=== PATIENT | male | born 1960 | race Caucasian/White ===

== ENCOUNTER 2019-10-11 08:16 | Inpatient (IN) | payer OTHER ==
[2019-10-03 12:21] LABS: Absolute Lymphocytes (CBC) 2.5 K/uL (0.7-4.9); Basophils % 0.4 % (0-1.3); Hematocrit 49.6 % (39.6-49.0); Lymphocytes % 28.1 % (15.3-44.8); MPV 9.4 fL (7.6-11.3); RBC Red Blood Cell Count 5.62 M/uL (4.33-5.43)
[2019-10-03 12:24] LABS: Protime INR 0.92
--- NOTE | 2019-10-03 12:26 | RAD REPORT ---
EXAM DESCRIPTION: RAD - Chest Pa And Lat (2 Views) - 10/03/2019 12:20 pm CLINICAL HISTORY: preop Chest pain. COMPARISON: No comparisons FINDINGS: The lungs are clear. The heart is normal in size. No displaced fractures. IMPRESSION: No acute or concerning finding suspected.
[2019-10-03 12:32] LABS: BUN Blood Urea Nitrogen 12 mg/dL (7-18); Bicarbonate 25 mmol/L (21-32); Glucose Level 96 mg/dL (74-106); Sodium Level 140 mmol/L (136-145)
--- OUTSIDE RECORDS SUMMARY | 2019-10-11 08:19 | XMS REPORT ---
:1960 Author Organization [employer] Care Team Providers Name Role Phone Manny De Leon Provider Role Unavailable Allergies No Known Allergies Problems Problem Type Condition Code Onset Dates Condition Status Problem Morbidly obese E66.01 Active Problem Other chronic pain G89.29 Active Problem Sciatica, right side M54.31 Active Problem Left sided sciatica M54.32 Active Problem Pain in left knee M25.562 Active Problem Primary osteoarthritis of left knee M17.12 Active Medications No Known Medications Results No Known Results Summary Purpose [employer] Submission
--- OUTSIDE RECORDS SUMMARY | 2019-10-11 08:19 | XMS REPORT ---
:1960 Author Organization [employer] Care Team Providers Name Role Phone Manny De Leon Provider Role Unavailable Allergies, Adverse Reactions, Alerts Substance Reaction Event Type N.K.D.A. Info Not Available Non Drug Allergy Problems Problem Type Condition Code Onset Dates Condition Status Assessment Pain in left knee M25.562 Active Assessment Primary osteoarthritis of left knee M17.12 Active Problem Morbidly obese E66.01 Active Problem Other chronic pain G89.29 Active Problem Sciatica, right side M54.31 Active Problem Left sided sciatica M54.32 Active Problem Pain in left knee M25.562 Active Problem Primary osteoarthritis of left knee M17.12 Active Medications Medication Code Code Instructions Start End Status Dosage System Date Date Jardiance [facility] 97449056353 10 MG Oral Active TAKE 1 TABLET BY MOUTH EVERY DAY IN THE MORNING Losartan [facility] [address]-67 Active not Potassium defined Clopidogrel [facility] 59484706833 75 MG Orally Active 1 tablet Bisulfate Once a day Tramadol HCl ND 0 Active not defined Isosorbide [facility] 78011152514 30 MG Orally Active 1 tablet Mononitrate ER Once a day in the morning Amlodipine ND 0 Active not Besylate defined Atorvastatin [facility] 81062797051 40 MG Orally Active 1 tablet Calcium Once a day Entresto [facility] 64300610393 49-51 MG Orally Active 1 tablet Twice a day Methocarbamol [facility] [address]-57 Active not defined Metformin HCl [facility] [address]-27 Active not defined Results No Known Results Summary Purpose [employer]Works Submission
--- OUTSIDE RECORDS SUMMARY | 2019-10-11 08:19 | XMS REPORT ---
:1960 Author Organization [employer] Care Team Providers Name Role Phone Manny De Leon Provider Role Unavailable Allergies No Known Allergies Problems Problem Type Condition Code Onset Dates Condition Status Assessment Primary osteoarthritis of left knee M17.12 [...]
[2019-10-11] MEDS ORDERED: NA CHLORIDE 0.9% 0 ML ONE (08:38)
[2019-10-11] MEDS ORDERED: NA CHLORIDE 0.9% 1,000 ML ONE ×2 (08:43→10:48)
[2019-10-11] MEDS ORDERED: FENTANYL CITR 100 MCG/2 ML ONE (09:03)
[2019-10-11] MEDS ORDERED: propofoL 200 MG/20 ML VIAL IV ONE (09:03)
[2019-10-11] MEDS ORDERED: LIDOCAINE 2% MPF 5 ML VIAL ONE (09:03)
[2019-10-11] MEDS ORDERED: MIDAZOLAM HCL 2 MG/2 ML INJ ONE ×2 (09:04→09:05)
[2019-10-11] MEDS ORDERED: CEFAZOLIN/SWI 2gm 2 GM/20 ML SYR ONE (09:29)
[2019-10-11] MEDS ORDERED: TRANEXAMIC ACID 1,000 MG in NA CHLORIDE 0.9% 50 ML IV SCH (09:30)
[2019-10-11] MEDS ORDERED: LIDOCAINE 1% MPF 2 ML AMPULE ONE (09:57)
[2019-10-11] MEDS ORDERED: EPINEPHRINE/PF 1 MG/ML AMP ONE (09:59)
[2019-10-11] MEDS ORDERED: BUPIVACAINE 0.25% PF 30 ML VIAL ONE (10:31)
[2019-10-11] MEDS ORDERED: dexAMETHasone 4 MG/ML VIAL ONE (10:31)
[2019-10-11] MEDS ORDERED: KETAMINE HCL 500 MG/5 ML VIAL ONE (11:04)
[2019-10-11] MEDS ORDERED: MEPERIDINE HCL 25 MG/ML SYR ONE (11:04)
[2019-10-11] MEDS ORDERED: GLYCOPYRROLATE 0.2 MG/ML SYR ONE ×2 (11:10→11:11)
[2019-10-11] MEDS: BUPIVACA 0.5%/EPI 0.0005%/PF 30 ML VIAL ONE ×2 (11:19→12:47)
[2019-10-11] MEDS ORDERED: FENTANYL CITR 250 MCG/5 ML ONE (11:36)
[2019-10-11] MEDS ORDERED: KETOROLAC 30 MG/ML INJ ONE (13:13)
--- NOTE | 2019-10-11 14:04 | P.BOP ---
Preoperative diagnosis: left knee osteoarthritis Postoperative diagnosis: same Primary procedure: left total knee arthroplasty Supervisor Cell Maintenance: NONE,NONE Estimated blood loss: 20 cc Specimen: left knee bone remnants Findings: see dictation Anesthesia: General Drain(s): Urinary catheter (removed at the end of the case) Implants: Biomet Willis Persona Size 12 CR femur, H tibia, 10 mm poly, 41 patella Fluids & blood products: per anesthesia record; TT: 103 mins @ 300 mmHg Transferred to: Recovery Room Condition: Good
[2019-10-11] MEDS ORDERED: DOCUSATE NA 100 MG CAP PO PRN (14:10)
[2019-10-11] MEDS ORDERED: ONDANSETRON 4 MG/2 ML VIAL IV PRN (14:10)
[2019-10-11] MEDS ORDERED: TRAMADOL HCL 50 MG TAB PO PRN (14:13)
--- NOTE | 2019-10-11 14:35 | P.CNS ---
Date of Consult: 10/11/19 Reason for Consult: Medical management Requesting Physician: Manny De Leon Primary Care Provider: Dr. Santo([place], [place]); Cardiology-Dr. Sánchez([place], [place]) Chief Complaint: Left total knee replacement History of Present Illness: 59-year-old male presented as an admission by orthopedics for left total knee replacement. Patient tolerated procedure well. I was consulted to further address his medical problems. Patient with history of diabetes mellitus type 2 non-insulin dependent, hypertension, hyperlipidemia, CAD, systolic congestive heart failure, chronic pain, and obesity. Patient was seen by Cardiology prior to surgery. He had a heart catheterization showing some stenosis. No stent was required. Patient was placed on Plavix. Patient denies any complaints at this time. Orthopedics plans to continue with DVT prophylaxis-Lovenox, Plavix, in his other medications. Therapy will be initiated. Allergies No Known Allergies Allergy (Verified 10/03/19 11:28) Home medications list reviewed: Yes Home Medications: Atorvastatin Calcium [Lipitor] 40 mg PO BEDTIME 10/03/19 Clopidogrel Bisulfate [Plavix] 75 mg PO DAILY 10/03/19 Empagliflozin [Jardiance] 10 mg PO DAILY 10/03/19 Isosorbide Dinitrate 30 mg PO [id number] 10/03/19 Metformin HCl 1,000 mg PO BID 10/03/19 Sacubitril/Valsartan [Entresto 49 mg-51 mg Tablet] 1 tab PO BID 10/03/19 - Past Medical/Surgical History Diabetic: Yes -: Diabetes mellitus type 2 sef-syjyndi-hvtrvmvdb -: Hypertension -: Osteoarthritis left knee -: CAD -: Systolic congestive heart failure -: Hyperlipidemia -: lower back surg 2003 Psychosocial/ Personal History: Patient lives at home. - Family History Brother Medical History: Heart disease Notes: mother and sisters-diabetes. mother kidney disease. father lung cancer - Social History Smoking Status: Light Tobacco smoker (1-9 cigarettes/day) Smoking therapy provided: Yes Alcohol use: No CD- Drugs: No Caffeine use: Yes Place of Residence: Home Review of Systems General: Unremarkable Eyes: Unremarkable ENT: Unremarkable Respiratory: Unremarkable Cardiovascular: Unremarkable Gastrointestinal: Unremarkable Genitourinary: Unremarkable Musculoskeletal: As per HPI Neurological: Unremarkable Lymphatics: Unremarkable Physical Examination Temp Pulse Resp BP Pulse Ox 98 F 67 12 123/73 10/11/19 14:13 10/11/19 14:13 10/11/19 14:13 10/11/19 14:13 General: Alert, In no apparent distress, Cooperative HEENT: Atraumatic, Normocephalic, Mucous membr. moist/pink Neck: Supple Respiratory: Clear to auscultation bilaterally, Normal air movement Cardiovascular: Normal pulses, Regular rate/rhythm Gastrointestinal: Normal bowel sounds, Soft and benign, Non-distended, No tenderness, No masses, No rebound, No guarding Musculoskeletal: Other (Left knee bandaged) Neurological: Normal speech, Normal strength at 5/5 x4 extr, Normal tone, Normal affect Conclusions/Impression: Impression: Left knee arthritis status post left total knee replacement Hypertension Diabetes mellitus type 2 kym-mqpowph-jomxkjopw Chronic systolic congestive heart failure Hyperlipidemia CAD Tobacco abuse Obesity Plan: Left knee arthritis status post left total knee replacement: Case discussed with orthopedics. Physical therapy to be initiated. Will continue with medication for pain. Patient will continue with Lovenox for DVT prophylaxis. Will resume home medications. Will follow along. Anticipate discharge to home in the next 48-72 hr. Hypertension: Will need to restart home medication. Will monitor and adjust appropriately. Diabetes mellitus type 2 zxh-fqcnibt-fslegkizh: Will provide Accu-Cheks. Will monitor closely. Metformin restarted. Chronic systolic congestive heart failure: Patient takes Entresto. This will need to be restarted. Hyperlipidemia: Will continue with home medication. CAD: Will continue with Plavix. Tobacco abuse: Will provide nicotine patch. Obesity: Will address lifestyle modification education. Time Spent Managing Pts care (In Minutes): 55
[2019-10-11 14:50] LABS: Hematocrit 44.4 % (39.6-49.0)
--- NOTE | 2019-10-11 15:33 | RAD REPORT ---
EXAM DESCRIPTION: RAD - Knee Left 2 View - 10/11/2019 2:51 pm CLINICAL HISTORY: Left knee surgery FINDINGS: Postoperative changes left knee arthroplasty Prosthesis in good position No fracture or dislocation.
[2019-10-11 15:57] VITALS: BMI 34.7
[2019-10-11] MEDS ORDERED: INFLUENZA VACCINE (for 3y+) 0.5 ML DOSE IMVAC ONE (17:00)
[2019-10-11] MEDS ORDERED: PNEUMOCOCCAL VACCINE 0.5 ML IMVAC ONE (17:00)
[2019-10-11] MEDS: METFORMIN HCL 500 MG TAB PO SCH (17:30)
[2019-10-11] MEDS: CEFAZOLIN/SWI 2gm 2 GM/20 ML SYR IVP SCH (17:30)
[2019-10-11] MEDS ORDERED: HOME MED 1 EA UNK (Metformin Hcl [Metformin Hcl] 1,000 MG) PO SCH (21:00)
[2019-10-11] MEDS: MORPHINE 2 MG/ML SYR IV PRN (21:45)
[2019-10-11] MEDS: SACUBITRIL/VALSARTAN 49/51 MG TAB PO SCH (21:46)
[2019-10-11] MEDS: ATORVASTATIN 40 MG TAB PO SCH (21:46)
--- NOTE | 2019-10-11 22:54 | P.OP ---
Preoperative diagnosis: left knee osteoarthritis Postoperative diagnosis: same Primary procedure: left total knee arthroplasty Anesthesia: general LMA Estimated blood loss: 20 cc Specimen: left knee bone remnants Findings: see dictation Operative Technique: Indication For Procedure: Kme is a 59-year-old male who presented to my clinic with signs and symptoms consistent with severe left knee osteoarthritis. The patient failed conservative treatment measures including physical therapy, corticosteroid and viscosupplementation injection. I discussed with the patient at length risks and benefits associated with operative and nonoperative treatment. He expressed understanding and elected to proceed with the operative treatment. Description Of Procedure: After informed consent was obtained, the patient was identified in the preoperative holding area. The left lower extremity was marked. The patient was then taken back to the PACU where he underwent an adductor canal block performed by Anesthesia. He was then taken back to the operating room, transferred to the operating table in the supine fashion and placed under general LMA anesthesia. Left lower extremity was then prepped and draped in the usual sterile fashion. A time-out was initiated. The correct patient and procedure were confirmed and identified. The patient did receive his preoperative prophylactic antibiotics. The left lower extremity was exsanguinated using an Esmarch and the tourniquet was inflated to 300 mmHg. Approximately 15 cm longitudinal incision was made over the anterior aspect of the knee centered over the patella. Dissection was then taken down to the extensor mechanism where a median parapatellar arthrotomy was performed. The patella was everted. There was significant wear of the undersurface of the patella and it was elected to resurface the patella. Osteophytes were then debrided using a rongeur on the superior and inferior medial and lateral aspects of the patella. Medial capsular tissue was then elevated off the proximal tibial for exposure. Infrapatellar fat pad was excised as well as medial and lateral menisci as well as the ACL. Preoperatively, the patient had an MRI for creation of the cutting block guide. The guide was then placed over the distal femur and pinned into position and first a distal femoral cutting guide was placed over the pins and the distal femoral cut was then placed. The 4 in 1 cutting guide was then placed over the distal aspect of the distal femur and anterior and posterior cuts were made as well as anterior and posterior chamfer cuts. A size 12 CR femur was then selected and was put into position. Next, the proximal tibial femoral guide was then placed, tamped into position over the proximal tibia and pins were placed. Alignment krystal was then placed and there was good overall alignment with posterior slope as well as varus/ valgus alignment. The proximal tibia cutting guide was then placed and the proximal tibia was cut until the 10 mm spacer fit well in both flexion and extension. There was no significant instability. The trial components were then placed using a size 12 femur and a size H tibia with an 10 mm poly. Given the large implants and increased BMI, it was elected to place a 30 mm stem on the tibial component. There was good overall range of motion and stability. The femur was drilled as well as the tibia was punched. The patellar thickness was then measured and a planar was used to cut the patella to the proper depth and a size 41 patella was selected and drilled. .After this was completed, the wound was then irrigated thoroughly with normal saline. The knee was then injected with 30 mL of 5% Marcaine with epinephrine in the posterior capsule, periosteum, and quad tendon and muscle as well as the anterior soft tissues of the tibia. The cement was prepared on the back table and placed on the tibia. Final tibial component was placed, which was a size H tibia. Excess cement was then removed using a [place] elevator followed by placement of the 12 CR femur. Excess cement was removed using a [place] elevator. Size 10 mm poly was then placed. The cement was also placed on the patella and the patellar component was placed. The knee was held in extension as the cement hardened. The knee was then ranged. There was good overall patellar tracking as well as stability in flexion and extension. The final size 10 CR poly was then placed and locked into position. The wound was then irrigated thoroughly with normal saline. Tourniquet was let down. Hemostasis was achieved using Bovie electrocautery. The extensor mechanism was then approximated using a #1 Vicryl in an interrupted and running fashion. The superficial fascia was approximated using a 0 Vicryl. The subcutaneous tissue was approximated using a 2-0 Vicryl. Skin was approximated using laura. Sterile dressings were applied. The patient was awakened and transferred to the PACU in stable condition. Postoperative Plan: Physical Therapy will be consulted to aid with mobilization. Dr. Patel was consulted to aid with medical management. The patient will stay at least 2 midnights given his multiple medical comorbidities. Complications: None Drain(s): Urinary catheter (removed at the end of the case) Implants: Biomet Willis Persona 12 CR femur, H tibia w/ stem, 10 mm poly, 41 patella Fluids & blood products: per anesthesia record; TT: 103 mins @ 300 mmHg Transferred to: Recovery Room Condition: Good
[2019-10-12] MEDS: HYDROCODONE/APAP 7.5/325 MG TAB PO PRN ×4 (00:44→20:52)
[2019-10-12] MEDS: CEFAZOLIN/SWI 2gm 2 GM/20 ML SYR IVP SCH ×2 (00:47→09:00)
[2019-10-12] MEDS: NICOTINE 21 MG/PAT TD SCH ×2 (03:04→08:54)
[2019-10-12] MEDS: MORPHINE 2 MG/ML SYR IV PRN ×4 (03:20→23:45)
[2019-10-12] MEDS: ISOSORBIDE DINIT 20 MG TAB PO SCH (05:18)
[2019-10-12] MEDS: ENOXAPARIN 30 MG/0.3 ML SQ SCH ×3 (05:19→20:53)
[2019-10-12] MEDS ORDERED: HOME MED 1 EA UNK (Isosorbide Dinitrate [Isosorbide Dinitrate] 30 MG) PO SCH (06:00)
[2019-10-12] MEDS ORDERED: GABAPENTIN 100 MG CAP PO PRN (08:04)
[2019-10-12] MEDS: METFORMIN HCL 500 MG TAB PO SCH ×2 (08:50→16:32)
[2019-10-12] MEDS: SACUBITRIL/VALSARTAN 49/51 MG TAB PO SCH ×2 (08:51→20:52)
[2019-10-12] MEDS: CELECOXIB 100 MG CAPSULE PO SCH (08:52)
[2019-10-12] MEDS: CLOPIDOGREL 75 MG TABLET PO SCH (08:53)
[2019-10-12] MEDS: HOME MED 1 EA UNK (Empagliflozin [Jardiance] 10 MG) PO SCH (09:00)
--- NOTE | 2019-10-12 11:42 | P.PN ---
Subjective Date of Service: 10/12/19 Primary Care Provider: Dr. Santo([place], [place]); Cardiology-Dr. Sánchez([place], [place]) Chief Complaint: Left total knee replacement Subjective: Ambulating, Improving, Working w/ PT Physical Examination - Vital Signs Temperature: 100.1 F Blood Pressure: 140/68 Pulse: 71 Respirations: 18 Pulse Ox (%): 98 - Physical Exam General: Alert, In no apparent distress Musculoskeletal: Other (LLE: dressing c/d/i; +EHL/FHL/GSC/TA; sensation grossly intact distally) - Studies Laboratory Data (last 24 hrs) 10/11/19 14:40: Hgb 14.8, Hct 44.4 Assessment And Plan - Plan Kem is a 59 yo male s/p L TKA POD#1 -PT to mobilize; WBAT LLE -lovenox for DVT prophylaxis -will likely be discharged tomorrow with HHPT -Dr. Patel for medical management
[2019-10-12] MEDS: CALCIUM CARBONATE CHEW 500MG TAB PO PRN ×2 (11:59→16:35)
--- NOTE | 2019-10-12 12:22 | P.PN ---
Subjective Date of Service: 10/12/19 Primary Care Provider: Dr. Santo([place], [place]); Cardiology-Dr. Sánchez([place], [place]) Chief Complaint: Left total knee replacement Subjective: Doing well, Other (Patient had some sciatica to the left side Overnite.) Physical Examination - Vital Signs Temperature: 100.1 F Blood Pressure: 140/68 Pulse: 71 Respirations: 18 Pulse Ox (%): 98 - Physical Exam General: Alert, In no apparent distress, Oriented x3, Cooperative HEENT: Atraumatic Neck: Supple Respiratory: Clear to auscultation bilaterally, Normal air movement Cardiovascular: Normal pulses, Regular rate/rhythm Gastrointestinal: Normal bowel sounds, Soft and benign, Non-distended, No masses , No rebound, No guarding - Studies Laboratory Data (last 24 hrs) 10/11/19 14:40: Hgb 14.8, Hct 44.4 Assessment & Plan Discharge Plan: Home Plan to discharge in: 24 Hours Physician Review Additional Text: Impression: Left knee arthritis status post left total knee replacement Hypertension Diabetes mellitus type 2 zou-mhpykno-vjocbvsmn Chronic systolic congestive heart failure Hyperlipidemia CAD Tobacco abuse Obesity Plan: Left knee arthritis status post left total knee replacement: Patient will start physical therapy today. Patient on Lovenox for DVT prophylaxis. Will add Neurontin for sciatica. Continue pain control medication. Encourage incentive spirometer. Likely discharge tomorrow to home with outpatient therapy. Hypertension: Continue medication Will monitor and adjust appropriately. Diabetes mellitus type 2 ueg-fiyrepp-obgmthjei: Will provide Accu-Cheks. Will monitor closely. Metformin restarted. Chronic systolic congestive heart failure: Continue Entresto. Hyperlipidemia: Will continue with home medication. CAD: Will continue with Plavix. Tobacco abuse: Will provide nicotine patch. Obesity: Will address lifestyle modification education. Time Spent Managing Pts Care (In Minutes): 55
[2019-10-12] MEDS: ATORVASTATIN 40 MG TAB PO SCH (20:52)
[2019-10-13] MEDS: HYDROCODONE/APAP 7.5/325 MG TAB PO PRN ×3 (04:41→12:08)
[2019-10-13] MEDS: ISOSORBIDE DINIT 20 MG TAB PO SCH (05:25)
[2019-10-13] MEDS: SACUBITRIL/VALSARTAN 49/51 MG TAB PO SCH (08:46)
[2019-10-13] MEDS: ENOXAPARIN 30 MG/0.3 ML SQ SCH (08:46)
[2019-10-13] MEDS: CLOPIDOGREL 75 MG TABLET PO SCH (08:47)
[2019-10-13] MEDS: CELECOXIB 100 MG CAPSULE PO SCH (08:47)
[2019-10-13] MEDS: METFORMIN HCL 500 MG TAB PO SCH (08:47)
[2019-10-13] MEDS: NICOTINE 21 MG/PAT TD SCH (08:47)
[2019-10-13] MEDS: HOME MED 1 EA UNK (Empagliflozin [Jardiance] 10 MG) PO SCH (08:48)
--- NOTE | 2019-10-13 09:00 | P.PN ---
Subjective Date of Service: 10/13/19 Primary Care Provider: Dr. Santo([place], [place]); Cardiology-Dr. Sánchez([place], [place]) Chief Complaint: Left total knee replacement Subjective: Improving, Doing well Physical Examination - Vital Signs Temperature: 97.3 F Blood Pressure: 139/67 Pulse: 66 Respirations: 16 Pulse Ox (%): 96 - Physical Exam General: Alert, In no apparent distress, Oriented x3 HEENT: Atraumatic Neck: Supple Respiratory: Clear to auscultation bilaterally, Normal air movement Cardiovascular: Normal pulses, Regular rate/rhythm Neurological: Normal speech, Normal strength at 5/5 x4 extr, Normal tone, Normal affect - Studies Medications List Reviewed: Yes Assessment & Plan Discharge Plan: Home Plan to discharge in: 24 Hours Physician Review Additional Text: Impression: Left knee arthritis status post left total knee replacement Hypertension Diabetes mellitus type 2 gmu-iyphami-yumrdboqi Chronic systolic congestive heart failure Hyperlipidemia CAD Tobacco abuse Obesity Plan: Left knee arthritis status post left total knee replacement: Patient has done well with physical therapy. Anticipate discharge today with therapy as an outpatient. Will discuss further with orthopedics. Patient may to go home with Lovenox for DVT prophylaxis or Xarelto 10 mg daily for 14 days. Will discuss further with orthopedics. Patient may also continue with incentive spirometer, Neurontin for pain. Hypertension: Continue medication Will monitor and adjust appropriately. Diabetes mellitus type 2 hdx-vmtlliw-tytiotmus: Will provide Accu-Cheks. Will monitor closely. Chronic systolic congestive heart failure: Continue Entresto. Hyperlipidemia: Will continue with home medication. CAD: Will continue with Plavix. Tobacco abuse: Will provide nicotine patch. Obesity: Will address lifestyle modification education. Time Spent Managing Pts Care (In Minutes): 55
[2019-10-13 10:12] VITALS: O2SAT 94
--- NOTE | 2019-10-13 11:35 | P.DS ---
Admission Date: 10/11/19 Discharge Date: 10/13/19 Primary Care Provider: Dr. Santo([place], [place]); Cardiology-Dr. Sánchez([place], [place]) Disposition: [place] HOME/HOME HEALTH CARE Discharge Condition: GOOD Reason for Admission: Left total knee replacement Consultations: Dr. Patel- Hospitalist Procedures: left total knee arthroplasty on 10/11/2019 Brief History of Present Illness: Kem is a 59 yo male with h/o CAD, DM, HTN s/p left TKA on 10/11/2019 without complication. Hospital Course: Kem is a 59 yo male with h/o CAD, DM, HTN s/p left TKA on 10/11/2019 without complication. He was admitted to the floor postop in stable condition. Dr. Patel was consulted postop for medical management. Physical therapy was consulted to aid with mobilization. His pain was controlled and his vital signs remained stable during his hospital stay. He was on lovenox for DVT prophylaxis while admitted and was discharged on Xaretlo. He was discharged in stable condition on 10/13/2019. Vital Signs/Physical Exam: Temp Pulse Resp BP Pulse Ox 97.3 F 66 16 139/67 96 10/13/19 08:59 10/13/19 08:59 10/13/19 08:59 10/13/19 08:59 10/13/19 08:59 Laboratory Data at Discharge: WBC 8.9 K/uL (4.3-10.9) 10/03/19 11:38 Hgb 14.8 g/dL (13.6-17.9) 10/11/19 14:40 Hct 44.4 % (39.6-49.0) 10/11/19 14:40 Plt Count 183 K/uL (152-406) 10/03/19 11:38 PT 10.9 SECONDS (9.5-12.5) 10/03/19 11:38 INR 0.92 10/03/19 11:38 APTT 34.1 SECONDS (24.3-36.9) 10/03/19 11:38 Sodium 140 mmol/L (136-145) 10/03/19 11:38 Potassium 4.0 mmol/L (3.5-5.1) 10/03/19 11:38 BUN 12 mg/dL (7-18) 10/03/19 11:38 Creatinine 0.83 mg/dL (0.55-1.3) 10/03/19 11:38 Glucose 96 mg/dL (74-106) 10/03/19 11:38 Home Medications: Atorvastatin Calcium [Lipitor] 40 mg PO BEDTIME 10/03/19 Clopidogrel Bisulfate [Plavix*] 75 mg PO DAILY 10/03/19 Empagliflozin [Jardiance] 10 mg PO DAILY 10/03/19 Isosorbide Dinitrate 30 mg PO [id number] 10/03/19 Metformin HCl 1,000 mg PO BID 10/03/19 Sacubitril/Valsartan [Entresto 49 mg-51 mg Tablet] 1 tab PO BID 10/03/19 Hydrocodone 7.5/APAP 325 [[place] 7.5/325 mg*] 1 tab PO Q4H PRN tab 10/13/19 Patient Discharge Instructions: keep dressing clean and may change as needed with aquacel by home health care; WBAT LLE; start Xarelto for DVT prophylaxis tomorrow 10/14/2019 with breakfast and take once daily; f/u with Dr. De Leon in 2 weeks for wound check and staple removal Diet: Regular Activity: Weight bearing as tolerated Followup: Manny De Leon MD [ACTIVE - CAN ADMIT] -
[2019-10-13 12:37] VITALS: BP 141/63; TEMP 97.1
== END 2019-10-13 16:41 | disposition home health service (06) | DRG 470 ==
LOC: OR 08:16 → 2ND 15:00
PROVIDERS: ADMIT Orthopaedic Surgery Sports Medicine; ATTEND Orthopaedic Surgery Sports Medicine
PROC: 0SRD069 Replacement of Left Knee Joint with Oxidized Zirconium on Polyethylene Synthetic Substitute, Cemented, Open Approach (ICD-10-PCS; principal; 2019-10-11 10:45)
DX: M17.12 Unilateral primary osteoarthritis, left knee (principal); I50.22 Chronic systolic (congestive) heart failure; E11.9 Type 2 diabetes mellitus without complications; E78.5 Hyperlipidemia, unspecified; I25.10 Atherosclerotic heart disease of native coronary artery without angina pectoris; I11.0 Hypertensive heart disease with heart failure; E66.9 Obesity, unspecified; Z68.34 Body mass index [BMI] 34.0-34.9, adult; F17.210 Nicotine dependence, cigarettes, uncomplicated; Z23 Encounter for immunization
CPT/HCPCS: 36415; 71046; 80048; 82947; 85014; 85018; 85025; 85610; 85730; 88305; 88311; 90471; 90670; 97116; 97139; 97161; 97530; J0171; J0690; J1650; J2001; J2175; J2250; J2270; J2405; J2704; J3010; J7030